=== PATIENT | male | born 1950 | race Two or more races ===

== ENCOUNTER 2017-09-01 12:15 | Emergency (ER) | payer MEDICAID ==
--- NOTE | 2017-09-01 13:11 | Emergency Department Record ---
History of Present Illness - General Chief Complaint: Cough Stated Complaint: COUGH Time Seen by Provider: 09/01/17 12:53 Source: Patient Mode of Arrival: Ambulatory Limitations: No limitations - History of Present Illness Initial Comments: The patient is here due to a 2 week hx of cough, congestion and sputum production. He denies any CP, SOB, CAPO, sweating, or headache. He states he feels fine but just does not want to have this cough any more. MD Complaint: Cough, Nasal congestion, Rhinorrhea Onset/Timin -: Week(s) Consistency: Intermittent - Related Data Home Medications Medication Instructions Recorded Confirmed Last Taken No Home Med [NO HOME MEDS] 09/01/17 09/01/17 Unknown Allergies Allergy/AdvReac Type Severity Reaction Status Date / Time No Known Drug Allergies Allergy Verified 09/01/17 12:44 Travel Screening - Travel/Exposure Within Last 30 Days Have you traveled within the last 30 days?: No Review of Systems Constitutional: Denies: Chills, Fever Eyes: Denies: Eye discharge ENT: Reports: Congestion Respiratory: Reports: Cough. Denies: Dyspnea Cardiovascular: Denies: Chest pain Past Medical History - SOCIAL HISTORY Smoking Status: Never smoker Alcohol Use: None Drug Use: None - RESPIRATORY Hx Respiratory Disorders: No - CARDIOVASCULAR Hx Cardio Disorders: Yes Hx Abnormal EKG: Yes - NEURO Hx Neuro Disorders: No - GI Hx GI Disorders: No - Hx Genitourinary Disorders: No - ENDOCRINE Hx Endocrine Disorders: No - MUSCULOSKELETAL Hx Musculoskeletal Disorders: No - PSYCH Hx Psych Problems: No - HEMATOLOGY/ONCOLOGY Hx Hematology/Oncology Disorders: No Family Medical History Any Significant Family History?: No Physical Exam - General General Appearance: Alert, Oriented x3, Cooperative, No acute distress - Head Head exam: Atraumatic, Normocephalic, Normal inspection - Eye Eye exam: Normal appearance, PERRL, EOMI - ENT Throat exam: Normal inspection. negative: Tonsillar erythema, Tonsillar exudate - Neck Neck exam: Normal inspection, Full ROM. negative: Tenderness - Respiratory Respiratory exam: Normal lung sounds bilaterally. negative: Rales, Respiratory distress, Rhonchi, Stridor, Wheezes - Cardiovascular Cardiovascular Exam: Regular rate, Normal rhythm, Normal heart sounds - GI/Abdominal GI/Abdominal exam: Soft, Normal bowel sounds. negative: Tenderness - Extremities Extremities exam: Normal inspection, Full ROM, Normal capillary refill. negative: Tenderness - Neurological Neurological exam: Alert, Normal gait. negative: Abnormal gait, Motor sensory deficit - Skin Skin exam: negative: Rash Course Vital Signs 09/01/17 09/01/17 12:39 12:56 Temperature 98.4 F Pulse Rate 130 H Pulse Rate [ 84 Pulse Ox Probe] Respiratory 20 Rate Blood Pressure 204/136 Blood Pressure 208/118 [Left Arm] Pulse Ox 97 97 - Reevaluation(s) Reevaluation #1: The patient is doing better at this time. His HR is now in the 80's consistently and his BP improved. He clearly is in Afib/flutter. I did consult with Sree Simpson and he would like the patient transferred [place] [facility] [place]. The patient understands and agrees to the plan. 09/01/17 15:04 Reevaluation #2: WKG #2: Aflutter at 115. 09/01/17 15:05 Reevaluation #3: I did discuss the case with Samantha ([employer]) who did accept the patient to [facility] [place] Lin. 09/01/17 15:31 09/01/17 16:45 The patient is doing very well at this time awaiting transfer. His HR is around 90 and BP is much improved. Medical Decision Making - Data Complexity MDM Data: Labs Ordered and/or Reviewed, X-Ray Ordered and/or Reviewed, EKG Ordered and/or Reviewed - Lab Data Result diagrams: 09/01/17 13:10 09/01/17 13:10 - EKG Data -: EKG Interpreted by [place] EKG: Abnormal EKG (Atrial flutter at 130, RBBB.) - Radiology Data Radiology results: Report reviewed (CXR: CMG, no acute changes.) Disposition Disposition: Transfer Disposition: Acute Care Hospital Transfer Transfer [place]: [facility] Reason For Transfer: Cardiology Accepting Physician: Dr. Duran Time Discussed w/Accepting Physician: 15:32 Condition: (2) Stable Instructions: Atrial Flutter (ED) Forms: Patient Portal Access Time of Disposition: 15:32 Quality - Quality Measures Quality Measures: N/A - Blood Pressure Screening View Details: Yes Does Patient Have Any of the Following: No, Active Dx of HTN Blood Pressure Classification: Hypertensive Reading Systolic Measurement: 169 Diastolic Measurement: 109 Screening for High Blood Pressure: Patient Exclusion, Hx of HTN [G9744]
[2017-09-01 13:20] LABS: HEMATOCRIT 40.9 % (42.0-52.0); HEMOGLOBIN 13.7 gm/dl (14.0-18.0); MEAN CELL VOLUME 81.2 fl (81-97); MEAN CORPUSCULAR HGB CONC 33.5 g/dl (32-36); MEAN PLATELET VOLUME 8.9 fl (7.4-10.4); PLATELET COUNT 363 K/uL (130-400); RED BLOOD COUNT 5.04 M/uL (4.40-5.70); RED CELL DISTRIBUTION WIDTH 14.8 % (11.5-14.5); WHITE BLOOD COUNT W/O DIFF 8.4 K/uL (4.2-12.2)
[2017-09-01 13:27] LABS: MEAN CORPUSCULAR HEMOGLOBIN 27.1 pg (27-33)
[2017-09-01 13:34] LABS: BLOOD UREA NITROGEN 14 mg/dL (8-23); CREATININE 0.9 mg/dL (0.7-1.2); EST GLOMERULAR FILTRATION RATE > 60 mL/min
[2017-09-01 13:37] LABS: GLUCOSE,RANDOM 112 mg/dL (74-109)
[2017-09-01 13:45] LABS: URINE APPEARANCE CLEAR; URINE BILIRUBIN NEGATIVE (NEGATIVE); URINE BLOOD NEGATIVE (NEGATIVE); URINE COLOR YELLOW; URINE GLUCOSE (UA) NEGATIVE (NEGATIVE); URINE KETONE NEGATIVE (NEGATIVE); URINE LEUKOCYTE ESTERASE NEGATIVE (NEGATIVE); URINE NITRITE NEGATIVE (NEGATIVE); URINE UROBILINOGEN 0.2 E.U./dL (0.20 - 1.00)
[2017-09-01 13:52] LABS: URINE BACTERIA NONE SEEN; URINE EPITHELIAL CELLS 0 - 2 (FEW); URINE RBC 0 - 2 (NONE SEEN); URINE WBC 0 - 2 (0-2/hpf)
[2017-09-01] MEDS ORDERED: 0.9 % SODIUM CHLORIDE 1,000 ML BAG IV ONE (14:03)
[2017-09-01] MEDS ORDERED: METOPROLOL TART 5 MG/5 ML VIAL IV ONE (14:22)
[2017-09-01 14:34] LABS: INR 1.14; PARTIAL THROMBOPLASTIN TIME 28.6 SECONDS (24.5-39.1); PROTHROMBIN TIME (PATIENT) 12.3 SECONDS (9.5-12.1)
[2017-09-01 14:52] LABS: CKMB 6.2 ng/mL (<6.73); CREATINE PHOSPHOKINASE 136 U/L (39-308)
[2017-09-01] MEDS ORDERED: HEPARIN SODIUM 1000 UNIT/1 ML 10ML VIAL IVP ONE (15:01)
[2017-09-01] MEDS ORDERED: HEPARIN SODIUM/D5W 25,000 UNITS/500 ML BAG IV SCH (15:15)
[2017-09-01] MEDS ORDERED: ASPIRIN 325 MG TABLET PO ONE (15:29)
[2017-09-01] MEDS ORDERED: HYDRALAZINE 20MG/ML VIAL IV ONE (15:56)
--- NOTE | 2017-09-02 13:24 | RADIOLOGY REPORT ---
EXAM: CHEST, TWO VIEWS HISTORY: PRODUCTIVE COUGH AND CHEST CONGESTION FOR ONE WEEK. TECHNIQUE: Upright PA and lateral views of the chest were obtained. Comparison: None. FINDINGS: Post median sternotomy changes are identified. The most inferiorly positioned median sternotomy wire is fractured as is the third most superiorly positioned median sternotomy wire. The heart projects mildly enlarged, but without pulmonary venous hypertension. No lung consolidation is seen. Patchy predominantly linear opacities are noted in the lateral right lung base consistent with atelectasis or scarring. There is possible minimal posterior costophrenic angle blunting bilaterally with tiny effusions not excluded. The lungs and pleural spaces are otherwise clear. IMPRESSION: 1. POST MEDIAN STERNOTOMY CHANGES. 2. MILD CARDIOMEGALY WITHOUT PULMONARY VENOUS HYPERTENSION. 3. PATCHY PREDOMINANTLY LINEAR OPACITIES IN THE LATERAL RIGHT LUNG BASE CONSISTENT WITH ATELECTASIS OR SCARRING. 4. POSSIBLE MINIMAL POSTERIOR COSTOPHRENIC ANGLE BLUNTING BILATERALLY WITH TINY EFFUSIONS NOT EXCLUDED. JOB NUMBER: [id number] MTDD
== END 2017-09-01 17:12 | disposition short-term general hospital (02) ==
LOC: ER 12:15
DX: I48.91 Unspecified atrial fibrillation (principal); I48.92 Unspecified atrial flutter; R05 Cough
CPT/HCPCS: 71046; 80048; 81001; 82550; 82553; 84443; 84484; 85027; 85610; 85730; 93005; 93010; 96365; 96366; 96375; 96376; 99285; J7030

== ENCOUNTER 2018-12-06 09:48 | Day surgery (SDC) | payer MEDICARE, OTHER ==
[2018-12-06] MEDS ORDERED: PROPOFOL 10 MG/ML VIAL IV ONE (09:49)
[2018-12-06] MEDS ORDERED: LIDOCAINE 2% MDV (20MG/ML) 20ML VIAL IV ONE (09:49)
--- NOTE | 2018-12-06 15:30 | Operative Note ---
DATE OF SURGERY: 12/06/2018 OPERATION: COLONOSCOPY to the cecum. INDICATION: Colorectal cancer screening. This is the patient's first examination. ANESTHESIA: Intravenous sedation was administered by the department of anesthesiology and included Diprivan titrated to effect. PROCEDURE: Following informed consent from this alert individual including a discussion of the risks and benefits of the procedure and an opportunity for the patient to ask questions, the patient was in the left lateral decubitus position. A digital rectal examination was performed. No abnormalities were noted. Following this, the Olympus NHR880 video colonoscope was inserted into the rectum without resistance. The rectal mucosa had a normal appearance with normal folds and distensibility. The colonoscope was advanced up through the bowel to the level of the cecum without much difficulty. Throughout the bowel the mucosa appeared normal, the folds were normal, and the bowel was fairly well distensible. The cecum was defined by noting the appendiceal orifice and ileocecal valve. There were scattered diverticula noted in the sigmoid colon. Retroflexion in the cecum was endoscopically normal. From the base of the cecum, the colonoscope was then slowly withdrawn. The colon preparation overall was very good. Again, upon withdrawal, no abnormalities were noted until the sigmoid colon was reached. At that point, there were a few scattered diverticula noted. No polyps were seen throughout. Retroflexion in the rectum demonstrated small internal hemorrhoids. The endoscope was straightened and removed. The patient tolerated the procedure well and was returned to the recovery area in stable condition. IMPRESSION: 1. Sigmoid diverticulosis. 2. Small internal hemorrhoids. RECOMMENDATIONS: The patient was advised to have recheck colonoscopy in 10 years' time or sooner should problems arise. Followup will otherwise be with primary care team. As always, thank you for allowing me to participate in the care of your patient. CC: HBARAT Lerma
== END 2018-12-06 12:39 | disposition home or self-care (01) ==
LOC: HOP 09:48
PROVIDERS: ATTEND Internal Medicine Gastroenterology
DX: Z12.11 Encounter for screening for malignant neoplasm of colon (principal); K57.30 Diverticulosis of large intestine without perforation or abscess without bleeding; E11.9 Type 2 diabetes mellitus without complications; I48.91 Unspecified atrial fibrillation; I10 Essential (primary) hypertension